=== PATIENT | female | born 1970 | race Caucasian/White ===

== ENCOUNTER 2023-03-24 08:41 | Day surgery (SDC) | payer OTHER, SELFPAY ==
--- NOTE | 2023-03-24 | PATH_ITS ---
[facility] Accession Number: [id number] No. of containers..01 Tissue . 01 Material submitted: . rectum - RECTAL POLYP . 01 Diagnosis: Rectal Polyp, Biopsy: Hyperplastic polyp. [facility] 03/29/2023 1040 Local . 01 Electronically signed: . Alison Robbins MD, Pathologist NPI- [id number] . 01 Gross description: . RECTAL POLYP: Received in formalin is 1 fragment(s) of [place]te[place], soft tissue measuring 0.2 x 0.2 x 0.1 cm submitted entirely in 1 cassette(s) /AAY 03/25/2023 0435 Local . 01 Pathologist provided ICD-10: D12.8 . 01 CPT . 206616 Specimen Comment: A courtesy copy of this report has been sent to [phone] Performed at: 01 [facility] [address] [place] [address] [id number] MD Gianni Barker MD Phone: [phone]
[2023-03-24 09:25] VITALS: BP 117/74; PULSE 66; RESP 16; TEMP 36.3; O2SAT 96; BMI 22.4
[2023-03-24] MEDS: LACTATED RINGERS 1,000 ML 42 ML IV ×2 (09:43→11:46)
--- NOTE | 2023-03-24 10:35 | P.HP_ITS ---
History of Present Illness History of Present Illness Date Patient Seen: 03/24/23 Time Patient Seen: 10:35 Chief complaint: Colonoscopy Narrative: Candida is a 53-year-old woman who is here for colonoscopy. She had 1 about 3 years ago in [place] and was told to have another colonoscopy at 3 years. She does not know if polyps removed as she never got any correspond insert feedback about what was found. No family history of colon cancer. PFSH Social History household members: spouse Smoking Status: Never smoker alcohol intake: current Meds Home Medications and Allergies Home Medications Medication Instructions Recorded Confirmed Type estradiol 0.05 mg/24 hr semiweekly 1 patch transdermal 2XW 03/24/23 03/24/23 History transdermal patch levothyroxine 75 mcg tablet 75 mcg PO DAILY 03/24/23 03/24/23 History Allergies Allergy/AdvReac Type Severity Reaction Status Date / Time Penicillins Allergy Severe Anaphylaxis Verified 03/24/23 09:18 Exam Vital Signs (past 8 hours): - 03/24/23 09:25 Temperature 97.3 F L Pulse Rate 66 Respiratory Rate 16 Blood Pressure 117/74 Pulse Oximetry 96 Oxygen Delivery Method Room Air Oxygen Delivery Method Room Air Const General: healthy appearing and No acute distress Resp Effort & Inspection: normal respiratory effort Assessment & Plan Assessment and plan (1) Colon cancer screening: Status: Acute Plan We reviewed the risks and benefits of colonoscopy for colon cancer screening and she would like to proceed.
--- NOTE | 2023-03-24 12:01 | PM.OP.COLON ---
Operative Date/Time/Diagnoses Date of procedure: 03/24/23 Time of procedure: 12:01 Pre-op diagnosis: Colon cancer screening Post-op diagnosis: same Procedure & Clinicians Study performed: Colonoscopy Same procedure as scheduled: Yes Surgeon: Que Cardoza Procedure Notes Procedure in detail: Surgeon: Que Cardoza MD Anesthesia: Giancarlo Sharpe D.O. Procedure: The patient was brought to the endoscopy suite, placed in left lateral decubitus position. The patient was connected to monitoring devices. A time-out was performed. Sedation was administered. Once the patient was adequately sedated, a digital rectal exam was performed and was normal. The scope was then inserted and advanced to the cecum where the appendiceal orifice was identified and photographed. The scope was then slowly withdrawn over greater than 6 minutes. The mucosa was thoroughly inspected. There was a 5 mm polyp in the mid rectum removed with a cold snare. The scope was retroflexed in the rectum. No other abnormalities were seen. The scope was straightened and removed. The patient was awakened and brought to recovery. Scope withdrawal time: 14 minutes Sedation time: 29 minutes EBL: 5 mL Findings: 5 mm rectal polyp Post-procedure Disposition: PACU
[2023-03-24 12:02] VITALS: BP 120/88; PULSE 79; RESP 17; TEMP 36.4; O2SAT 97
[2023-03-24 12:08] VITALS: BP 126/63; PULSE 78; RESP 15; TEMP 36.4; O2SAT 98
[2023-03-24 12:18] VITALS: BP 124/78; PULSE 75; RESP 14; TEMP 36.3; O2SAT 98
== END 2023-03-24 12:41 | disposition home or self-care (01) ==
PROVIDERS: PCP Nurse Practitioner Family; Referring Provider Surgery; Visit Provider Surgery
PROC: 0DJD8ZZ Inspection of Lower Intestinal Tract, Via Natural or Artificial Opening Endoscopic (ICD-10-PCS; CPT 45378; principal; 2023-03-24 10:15)
DX: Z12.11 Encounter for screening for malignant neoplasm of colon (principal); K62.1 Rectal polyp
CPT/HCPCS: 45385; J2704